=== PATIENT | male | born 1965 | race Caucasian/White ===

== ENCOUNTER 2018-02-28 10:37 | Observation (INO) | payer MEDICAID ==
[~2018-02-28] VITALS: Ht 180.3 cm; Wt 86.4 kg
[2018-02-28 11:46] LABS: BASOPHILS % (AUTO) 0.3 % (0-1); EOSINOPHILS # (AUTO) 0.2 X10'3 (0-0.9); EOSINOPHILS % (AUTO) 3.3 % (0-6); HEMATOCRIT 47.1 % (42.0-52.0); LYMPHOCYTES # (AUTO) 1.2 X10'3 (1.1-4.8); LYMPHOCYTES % (AUTO) 21.8 % (21-51); MEAN CORPUSCULAR HEMOGLOBIN 31.6 PG (27.0-31.0); MEAN CORPUSCULAR HGB CONC 34.1 % (33.0-36.5); MEAN CORPUSCULAR VOLUME 92.7 FL (78-98); MEAN PLATELET VOLUME 7.8 FL (7.4-10.4); MONOCYTES # (AUTO) 0.3 X10'3 (0-0.9); MONOCYTES % (AUTO) 5.4 % (2-12); NEUTROPHILS # (AUTO) 3.9 X10'3 (1.8-7.7); NEUTROPHILS % (AUTO) 69.2 % (42-75); PLATELET COUNT 230 X10'3 (140-440); RED BLOOD COUNT 5.08 X10'6 (4.70-6.10); RED CELL DISTRIBUTION WIDTH 13.4 % (11.5-14.5); WHITE BLOOD COUNT 5.6 X10'3 (4.5-11.0)
[2018-02-28 12:00] LABS: ALANINE AMINOTRANSFERASE 37 U/L (12-78); ALBUMIN/GLOBULIN RATIO 1.3 (1.1-1.5); ALKALINE PHOSPHATASE 77 IU/L (46-116); ANION GAP 9 (8-16); ASPARTATE AMINO TRANSFERASE 22 U/L (10-37); BILIRUBIN,TOTAL 0.5 MG/DL (0.1-1.0); BLOOD UREA NITROGEN 8 MG/DL (7-18); BUN/CREATININE RATIO 8.6 (5.4-32.0); CHLORIDE 105 MMOL/L (99-107); CREATININE 0.93 MG/DL (0.60-1.10); GLUCOSE 116 MG/DL (70-104); SODIUM 140 MMOL/L (135-145); TOTAL PROTEIN 7.2 G/DL (6.4-8.2); eGFR 85 ML/MIN
[2018-02-28 12:42] LABS: CLARITY,URINE CLEAR (Clear); COLOR,URINE YELLOW (Yellow); GLUCOSE, URINE NEGATIVE (Neg); KETONES,URINE NEGATIVE (Neg); LEUKOCYTE ESTERASE ,URINE NEGATIVE (Neg); NITRITES, URINE NEGATIVE (Neg); OCCULT BLOOD,URINE NEGATIVE (Neg); PH,URINE 6.5 (4.8-8.0); PROTEIN,URINE NEGATIVE (Neg); UROBILINOGEN,URINE 0.2 E.U/dL (0.2-1.0)
[2018-02-28 12:44] LABS: UA COLLECTION TYPE CLN CATCH MIDSTREAM
[2018-02-28] MEDS ORDERED: QUET25TA PO (14:05)
[2018-02-28] MEDS ORDERED: LEVE500T PO (14:17)
[2018-02-28] MEDS ORDERED: CITA-278 PO (14:18)
[2018-02-28] MEDS ORDERED: ASPI-1265 PO (14:25)
[2018-02-28] MEDS ORDERED: CLON-528 PO (15:28)
[2018-02-28] MEDS ORDERED: normal saline 1000ml 1,000 ML IV SCH (16:22)
[2018-02-28] MEDS ORDERED: potassium Cl 40MEQ/NS 500ml 500 ML IV PRN ×2 (16:25)
[2018-02-28] MEDS ORDERED: magnesium 1gm/100ml D5W IVPB 100 ML IV PRN (16:25)
[2018-02-28] MEDS ORDERED: potassium Cl 20 mEq SR tablet PO PRN ×2 (16:25)
[2018-02-28] MEDS ORDERED: magnesium 4gm in 100ml NS 100 ML IV PRN (16:25)
[2018-02-28] MEDS ORDERED: magnesium Cl slow-release 64mg tablet PO PRN (16:25)
[2018-02-28] MEDS ORDERED: ondansetron/PF 4mg/2ml inj IV PRN (16:25)
[2018-02-28] MEDS: citalopram 20mg tablet PO SCH (17:34)
[2018-02-28] MEDS: aspirin 81mg tab.chew PO SCH (17:35)
[2018-02-28 19:20] VITALS: BP 121/79
[2018-02-28] MEDS: levetiracetam 250mg tablet PO SCH (19:32)
[2018-02-28] MEDS: QUEtiapine 25mg tablet PO SCH (19:32)
[2018-02-28 22:00] VITALS: BP 120/64
[2018-03-01 02:00] VITALS: BP 113/77
[2018-03-01 05:51] LABS: BASOPHILS % (AUTO) 0.4 % (0-1); EOSINOPHILS # (AUTO) 0.4 X10'3 (0-0.9); EOSINOPHILS % (AUTO) 6.6 % (0-6); HEMOGLOBIN 14.9 g/dl (14.0-17.9); LYMPHOCYTES # (AUTO) 1.8 X10'3 (1.1-4.8); LYMPHOCYTES % (AUTO) 28.3 % (21-51); MEAN CORPUSCULAR HEMOGLOBIN 29.6 PG (27.0-31.0); MEAN CORPUSCULAR HGB CONC 32.3 % (33.0-36.5); MEAN CORPUSCULAR VOLUME 91.8 FL (78-98); MEAN PLATELET VOLUME 8.3 FL (7.4-10.4); MONOCYTES # (AUTO) 0.5 X10'3 (0-0.9); NEUTROPHILS # (AUTO) 3.7 X10'3 (1.8-7.7); NEUTROPHILS % (AUTO) 56.7 % (42-75); PLATELET COUNT 226 X10'3 (140-440); RED BLOOD COUNT 5.01 X10'6 (4.70-6.10); RED CELL DISTRIBUTION WIDTH 13.2 % (11.5-14.5); WHITE BLOOD COUNT 6.4 X10'3 (4.5-11.0)
[2018-03-01 06:00] VITALS: BP 111/74
[2018-03-01 06:12] LABS: ALBUMIN 3.7 G/DL (3.4-5.0); ANION GAP 7 (8-16); BLOOD UREA NITROGEN 12 MG/DL (7-18); BUN/CREATININE RATIO 12.2 (5.4-32.0); CALCIUM 8.9 MG/DL (8.5-10.1); CHLORIDE 106 MMOL/L (99-107); CREATININE 0.98 MG/DL (0.60-1.10); GLUCOSE 88 MG/DL (70-104); MAGNESIUM 1.7 MG/DL (1.5-2.4); POTASSIUM 4.6 MMOL/L (3.5-5.1); SODIUM 141 MMOL/L (135-145); TOTAL CARBON DIOXIDE 27.8 MMOL/L (24-32); eGFR 80 ML/MIN
[2018-03-01 06:32] LABS: CHOL/HDL RATIO 6.4 (0.00-4.99); CHOLESTEROL 187 MG/DL (0-200); HDL CHOLESTEROL 29 MG/DL (35-60); LDL CHOLESTEROL 139 MG/DL (50-100); TRIGLYCERIDES 135 MG/DL (20-135)
[2018-03-01] MEDS: K and/or MAG REPLACEMENT MC SCH (06:47)
[2018-03-01] MEDS: citalopram 20mg tablet PO SCH (09:20)
[2018-03-01] MEDS: aspirin 81mg tab.chew PO SCH (09:20)
[2018-03-01] MEDS: levetiracetam 250mg tablet PO SCH ×2 (09:21→21:04)
[2018-03-01] MEDS: QUEtiapine 25mg tablet PO SCH ×2 (09:21→21:04)
[2018-03-01] MEDS: atorvastatin 20mg tablet PO SCH (09:21)
[2018-03-01 18:00] VITALS: BP 113/82
[2018-03-01 22:00] VITALS: BP 113/79
[2018-03-02 02:00] VITALS: BP 114/78
[2018-03-02 05:29] LABS: BASOPHILS % (AUTO) 0.4 % (0-1); EOSINOPHILS # (AUTO) 0.4 X10'3 (0-0.9); EOSINOPHILS % (AUTO) 5.4 % (0-6); HEMATOCRIT 46.3 % (42.0-52.0); HEMOGLOBIN 15.9 g/dl (14.0-17.9); LYMPHOCYTES % (AUTO) 26.4 % (21-51); MEAN CORPUSCULAR HEMOGLOBIN 31.8 PG (27.0-31.0); MEAN CORPUSCULAR HGB CONC 34.4 % (33.0-36.5); MEAN CORPUSCULAR VOLUME 92.4 FL (78-98); MEAN PLATELET VOLUME 8.1 FL (7.4-10.4); MONOCYTES # (AUTO) 0.6 X10'3 (0-0.9); MONOCYTES % (AUTO) 8.3 % (2-12); NEUTROPHILS # (AUTO) 4.4 X10'3 (1.8-7.7); NEUTROPHILS % (AUTO) 59.5 % (42-75); PLATELET COUNT 215 X10'3 (140-440); RED BLOOD COUNT 5.01 X10'6 (4.70-6.10); RED CELL DISTRIBUTION WIDTH 13.2 % (11.5-14.5); WHITE BLOOD COUNT 7.4 X10'3 (4.5-11.0)
[2018-03-02 05:47] LABS: ALBUMIN 3.8 G/DL (3.4-5.0); ANION GAP 8 (8-16); CHLORIDE 104 MMOL/L (99-107); CREATININE 0.99 MG/DL (0.60-1.10); GLUCOSE 90 MG/DL (70-104); SODIUM 139 MMOL/L (135-145); TOTAL CARBON DIOXIDE 26.8 MMOL/L (24-32); eGFR 79 ML/MIN
[2018-03-02 06:00] VITALS: BP 120/77
[2018-03-02 06:18] LABS: BLOOD UREA NITROGEN 13 MG/DL (7-18); BUN/CREATININE RATIO 13.1 (5.4-32.0)
[2018-03-02] MEDS: aspirin 81mg tab.chew PO SCH (07:31)
[2018-03-02] MEDS: citalopram 20mg tablet PO SCH (07:31)
[2018-03-02] MEDS: levetiracetam 250mg tablet PO SCH (07:32)
[2018-03-02] MEDS: QUEtiapine 25mg tablet PO SCH (07:32)
[2018-03-02] MEDS: atorvastatin 20mg tablet PO SCH (07:32)
[2018-03-02] MEDS: K and/or MAG REPLACEMENT MC SCH (08:00)
[2018-03-02 10:00] VITALS: BP 120/78
[2018-03-02] MEDS ORDERED: atorvastatin 20mg tablet PO SCH (10:15)
[2018-03-02] MEDS ORDERED: ATOR20TA66 PO (10:18)
[2018-03-02] MEDS ORDERED: KEP500T PO (13:35)
== END 2018-03-02 14:00 | disposition home or self-care (01) ==
LOC: ER 10:37 → ED HOLD 16:22 → INTOOBSV 16:22 → ORTHO 4S 19:02
PROVIDERS: ADMIT Internal Medicine; ATTEND Internal Medicine
DX: H53.8 Other visual disturbances (principal); F39 Unspecified mood [affective] disorder; G40.909 Epilepsy, unspecified, not intractable, without status epilepticus; Z86.73 Personal history of transient ischemic attack (TIA), and cerebral infarction without residual deficits; G93.89 Other specified disorders of brain; Z79.82 Long term (current) use of aspirin
CPT/HCPCS: 36415; 70450; 70544; 70547; 70551; 80048; 80053; 80061; 81003; 83735; 85025; 87070; 93306; 93880; 97116; 97162; 97530; 99285; G0378; J7030; 93005

== ENCOUNTER → 2021-03-22 | Emergency (ER) | payer MEDICAID ==
[~2021-03-22] VITALS: Ht 180.3 cm; Wt 90.9 kg
[~2021-03-22] MED LIST: ASPI-1265 PO; ATOR20TA66 PO; CITA20TA28 PO; CLON-528 PO; KEP500T PO; LEVE500T PO; OLAN-1 PO
[2021-03-22 11:49] VITALS: BP 139/93
--- NOTE | 2021-03-22 13:27 | NUR ---
ambulate with minimal assist. pt. walks with little hop... stands on his tip toes on his left foot
== END | disposition home or self-care (01) ==
LOC: ER 13:15
DX: S63.253A Unspecified dislocation of left middle finger, initial encounter (principal); S09.90XA Unspecified injury of head, initial encounter; I51.9 Heart disease, unspecified; X58.XXXA Exposure to other specified factors, initial encounter; Y93.89 Activity, other specified; Y92.89 Other specified places as the place of occurrence of the external cause; Y99.8 Other external cause status
CPT/HCPCS: 26770; 64450; 70450; 73140; 99284